=== PATIENT | male | born 1940 | race Caucasian/White ===

== ENCOUNTER 2018-11-15 05:54 | Inpatient (IN) ==
[2018-11-07 13:10] LABS: Basophils % 0.7 % (0.0-0.8); Eosinophils # 0.1 10*3/uL (0.0-0.87); Hematocrit 41.4 VOL% (42.0-52.0); Hemoglobin 13.7 GM/DL (14.0-18.0); Immature Granulocytes % 0.3 %; Immature Granulocytes Absolute 0.02 #; Lymphocytes # 2.4 10*3/uL (1.4-4.0); Lymphocytes % 40.8 % (21.2-54.2); Mean Corpuscular HGB Conc 33.1 GM/DL (32-36); Mean Corpuscular Hemoglobin 32 PG (27-34); Mean Corpuscular Volume 97.4 FL (87-102); Mean Platelet Volume 9.4 FL (9.6-12.0); Monocytes # 0.4 10*3/uL (0.11-0.8); Monocytes % 7.2 % (1.7-12.7); Neutrophils # 2.9 10*3/uL (1.4-7.4); Platelet Count 212 T/CUMM (130-400); Red Blood Count 4.25 MC/CUMM (3.8-5.5); Red Cell Distribution Width 12.1 % (9.3-17.3)
[2018-11-07 13:33] LABS: Bilirubin,Total 0.4 MG/DL (0.2-1.0); Calcium 8.9 MG/DL (8.5-10.1); Osmolality,Calculated 279.5 MOS/KG (273-304); Total Protein 7.7 G/DL (6.4-8.3)
[2018-11-15] MEDS ORDERED: ALVIMOPAN 12 MG CAPSULE ONE (06:01)
[2018-11-15] MEDS ORDERED: ERTAPENEM 1,000 MG VIAL ONE (06:01)
[2018-11-15] MEDS: LACTATED RINGERS 1,000 ML IV SCH ×3 (06:14→10:16)
[2018-11-15] MEDS ORDERED: LIDOCAINE 1%/EPI INJ 20 ML VIAL ONE (06:15)
[2018-11-15] MEDS ORDERED: BUPIVACAINE 0.25% /EPI 10 ML VIAL ONE (06:15)
[2018-11-15] MEDS ORDERED: TISSUE ADHESIVE 1 EACH APPLICATOR TOP ONE (06:15)
[2018-11-15] MEDS ORDERED: ERTAPENEM 1,000 MG in SODIUM CHLORIDE 0.9% 100 ML IV ONE (06:30)
[2018-11-15] MEDS ORDERED: ALVIMOPAN 12 MG CAPSULE PO ONE (06:30)
[2018-11-15] MEDS ORDERED: ACETAMINOPHEN 1,000 MG/100 ML VIAL IV ONE (06:47)
[2018-11-15] MEDS ORDERED: INDOCYANINE GREEN 25 MG VIAL IV ONE (07:54)
[2018-11-15] MEDS ORDERED: ONDANSETRON 4 MG/2 ML VIAL IV PRN ×2 (10:50→11:14)
[2018-11-15] MEDS ORDERED: MORPHINE 4 MG/1 ML VIAL IV PRN (10:50)
[2018-11-15 11:01] LABS: Apearance,Urine CLEAR (Clear); Bilirubin,Urine Negative (Negative); Blood, Urine Negative (Negative); Glucose,Urine (UA) Negative (Negative); Ketones,Urine Negative (Negative); Mucus,Urine Occasional /LPF (Occasional); Nitrite,Urine Negative (Negative); Protein,Urine Negative; RBC,Urine 1 /HPF (0-4); Urine Color Yellow (Yellow); Urine Specific Gravity 1.009 (1.001-1.035); Urine Urobilinogen < 2.0 EU/DL (0.2-1.0); WBC,Urine 1 /HPF (0-6)
[2018-11-15] MEDS ORDERED: SEVOFLURANE 1 UNIT/15 MINUTE INH ONE (11:10)
[2018-11-15] MEDS ORDERED: fentaNYL 100 MCG/2 ML VIAL ONE (11:10)
[2018-11-15] MEDS ORDERED: ONDANSETRON 4 MG/2 ML VIAL ONE (11:11)
[2018-11-15] MEDS ORDERED: PROPOFOL 200 MG/20 ML VIAL IV ONE (11:11)
[2018-11-15] MEDS ORDERED: DEXAMETHASONE 10 MG/1 ML VIAL ONE (11:11)
[2018-11-15] MEDS ORDERED: LACTATED RINGERS 2,000 ML IV ONE (11:14)
[2018-11-15] MEDS ORDERED: KETOROLAC 30 MG/1 ML VIAL ONE (11:14)
[2018-11-15] MEDS ORDERED: GLYCOPYRROLATE 0.4 MG/2 ML VIAL ONE (11:14)
[2018-11-15] MEDS ORDERED: NEOSTIGMINE 10 MG/10 ML VIAL ONE (11:14)
[2018-11-15] MEDS ORDERED: HYDROmorphone 2 MG/1 ML VIAL IV PRN (11:14)
[2018-11-15] MEDS ORDERED: ePHEDrine 50 MG/ML AMP ONE (11:14)
[2018-11-15] MEDS ORDERED: ROCURONIUM 100 MG/10 ML VIAL IV ONE (11:14)
[2018-11-15 11:32] LABS: Hematocrit 38.4 VOL% (42.0-52.0); Hemoglobin 12.6 GM/DL (14.0-18.0)
[2018-11-15] MEDS: DEXTROSE 5% LACTATED RINGERS 1,000 ML IV SCH ×2 (11:45→19:54)
[2018-11-15] MEDS: cefOXitin 2,000 MG in SYRINGE 1 EACH IV SCH ×2 (17:33→22:19)
[2018-11-15 19:42] LABS: Hematocrit 37.6 VOL% (42.0-52.0); Hemoglobin 12.6 GM/DL (14.0-18.0)
[2018-11-15] MEDS: ALVIMOPAN 12 MG CAPSULE PO SCH (22:16)
[2018-11-16] MEDS: DEXTROSE 5% LACTATED RINGERS 1,000 ML IV SCH ×3 (03:10→19:20)
[2018-11-16] MEDS: cefOXitin 2,000 MG in SYRINGE 1 EACH IV SCH (03:51)
[2018-11-16 05:04] LABS: Basophils % 0.1 % (0.0-0.8); Hematocrit 37.7 VOL% (42.0-52.0); Hemoglobin 12.3 GM/DL (14.0-18.0); Immature Granulocytes % 0.3 %; Immature Granulocytes Absolute 0.04 #; Lymphocytes # 1.1 10*3/uL (1.4-4.0); Mean Corpuscular HGB Conc 32.6 GM/DL (32-36); Mean Corpuscular Hemoglobin 32 PG (27-34); Mean Corpuscular Volume 97.9 FL (87-102); Mean Platelet Volume 9.7 FL (9.6-12.0); Monocytes # 0.9 10*3/uL (0.11-0.8); Monocytes % 6.8 % (1.7-12.7); Neutrophils # 11.8 10*3/uL (1.4-7.4); Neutrophils % 84.8 % (38.7-73.9); Platelet Count 205 T/CUMM (130-400); Red Blood Count 3.85 MC/CUMM (3.8-5.5); White Blood Count 13.9 T/CUMM (4-12)
[2018-11-16 05:06] LABS: Hematocrit 37.6 VOL% (42.0-52.0); Hemoglobin 12.3 GM/DL (14.0-18.0)
[2018-11-16 05:26] LABS: Albumin 3.2 G/DL (3.4-5.0); Bilirubin,Total 0.9 MG/DL (0.2-1.0); Calcium 8.6 MG/DL (8.5-10.1); Osmolality,Calculated 276.8 MOS/KG (273-304); Potassium 3.6 MMOL/L (3.5-5.1); Total Protein 6.8 G/DL (6.4-8.3)
[2018-11-16] MEDS: LACTATED RINGERS 1,000 ML IV SCH ×2 (08:30→08:38)
[2018-11-16] MEDS: PANTOPRAZOLE 40 MG TABLET PO SCH (08:31)
[2018-11-16] MEDS: ALVIMOPAN 12 MG CAPSULE PO SCH ×2 (08:32→20:41)
[2018-11-16] MEDS ORDERED: DEXTROSE 5% LACTATED RINGERS 1,000 ML IV SCH (10:30)
[2018-11-16] MEDS: ASPIRIN EC 81 MG TABLET PO SCH (11:45)
[2018-11-16] MEDS: LISINOPRIL/HCTZ 10-12.5 MG TABLET PO SCH (11:45)
[2018-11-16] MEDS: MULTIVITAMIN (CENTRUM) TABLET PO SCH (11:47)
[2018-11-16] MEDS: ACETAMINOPHEN 500 MG TABLET PO SCH (20:41)
[2018-11-16] MEDS: diphenhydrAMINE CAP 25 MG CAPSULE PO SCH (20:42)
[2018-11-17] MEDS: DEXTROSE 5% LACTATED RINGERS 1,000 ML IV SCH ×3 (02:40→16:35)
[2018-11-17 06:11] LABS: Basophils % 0.1 % (0.0-0.8); Eosinophils % 0.1 % (0.00-10.9); Hematocrit 33.2 VOL% (42.0-52.0); Hemoglobin 10.9 GM/DL (14.0-18.0); Immature Granulocytes % 0.5 %; Immature Granulocytes Absolute 0.06 #; Lymphocytes # 1.5 10*3/uL (1.4-4.0); Lymphocytes % 13.7 % (21.2-54.2); Mean Corpuscular HGB Conc 32.8 GM/DL (32-36); Mean Corpuscular Hemoglobin 33 PG (27-34); Mean Platelet Volume 9.4 FL (9.6-12.0); Monocytes # 0.8 10*3/uL (0.11-0.8); Monocytes % 7.3 % (1.7-12.7); Neutrophils # 8.7 10*3/uL (1.4-7.4); Neutrophils % 78.3 % (38.7-73.9); Platelet Count 156 T/CUMM (130-400); Red Blood Count 3.32 MC/CUMM (3.8-5.5); Red Cell Distribution Width 12.3 % (9.3-17.3); White Blood Count 11.2 T/CUMM (4-12)
[2018-11-17 06:26] LABS: Calcium 8.2 MG/DL (8.5-10.1); Osmolality,Calculated 278.4 MOS/KG (273-304); Potassium 3.7 MMOL/L (3.5-5.1)
[2018-11-17] MEDS: MULTIVITAMIN (CENTRUM) TABLET PO SCH (08:56)
[2018-11-17] MEDS: LISINOPRIL/HCTZ 10-12.5 MG TABLET PO SCH (08:56)
[2018-11-17] MEDS: PANTOPRAZOLE 40 MG TABLET PO SCH (08:56)
[2018-11-17] MEDS: ASPIRIN EC 81 MG TABLET PO SCH (08:57)
[2018-11-17] MEDS: ALVIMOPAN 12 MG CAPSULE PO SCH ×2 (08:57→21:29)
[2018-11-17] MEDS: diphenhydrAMINE CAP 25 MG CAPSULE PO SCH (21:28)
[2018-11-17] MEDS: ACETAMINOPHEN 500 MG TABLET PO SCH (21:28)
[2018-11-18] MEDS: DEXTROSE 5% LACTATED RINGERS 1,000 ML IV SCH ×2 (02:36→10:31)
[2018-11-18] MEDS ORDERED: BISACODYL 10 MG SUPP RECTAL ONE (06:55)
[2018-11-18] MEDS: ASPIRIN EC 81 MG TABLET PO SCH (08:19)
[2018-11-18] MEDS: MULTIVITAMIN (CENTRUM) TABLET PO SCH (08:19)
[2018-11-18] MEDS: PANTOPRAZOLE 40 MG TABLET PO SCH (08:19)
[2018-11-18] MEDS: ALVIMOPAN 12 MG CAPSULE PO SCH ×2 (08:19→21:07)
[2018-11-18] MEDS: LISINOPRIL/HCTZ 10-12.5 MG TABLET PO SCH (08:19)
[2018-11-18] MEDS: ACETAMINOPHEN 500 MG TABLET PO SCH (21:07)
[2018-11-18] MEDS: diphenhydrAMINE CAP 25 MG CAPSULE PO SCH (21:07)
[2018-11-19 07:39] VITALS: BP 155/83
[2018-11-19] MEDS: ALVIMOPAN 12 MG CAPSULE PO SCH (09:19)
[2018-11-19] MEDS: ASPIRIN EC 81 MG TABLET PO SCH (09:20)
[2018-11-19] MEDS: LISINOPRIL/HCTZ 10-12.5 MG TABLET PO SCH (09:20)
[2018-11-19] MEDS: MULTIVITAMIN (CENTRUM) TABLET PO SCH (09:20)
[2018-11-19] MEDS: PANTOPRAZOLE 40 MG TABLET PO SCH (09:21)
== END 2018-11-19 10:25 | disposition home or self-care (01) | DRG 331 ==
LOC: N.OR 05:54 → N.SDSINP 05:54 → N.3E 11:46
PROVIDERS: ADMIT Surgery; ATTEND Surgery